=== PATIENT | female | born 1945 | race Caucasian/White ===

== ENCOUNTER 2019-11-16 16:33 | Observation (INO) | payer MEDICARE ==
[~2019-11-16] VITALS: Ht 167.6 cm; Wt 70.0 kg
[2019-11-16] MEDS ORDERED: PRIL40 PO (20:07)
[2019-11-16] MEDS ORDERED: CALCITRIOL PO (20:07)
[2019-11-16] MEDS ORDERED: SINGULAIR 110 MG/TAB PO (20:08)
[2019-11-16] MEDS ORDERED: PRINIVIL10 MG PO (20:08)
[2019-11-16] MEDS ORDERED: LIPITOR20 MG PO (20:08)
[2019-11-16] MEDS ORDERED: FLOVENT 220MCG7.9 GM IH (20:08)
[2019-11-16] MEDS ORDERED: SYNTHROID0.1 MG/TAB PO (20:08)
[2019-11-16 20:19] LABS: HEMATOCRIT 38.8 % (37.0-47.0); HEMOGLOBIN 13.6 g/dl (12.5-16.0); MEAN CELL VOLUME 91 fl (80.0-100.0); MEAN CORPUSCULAR HEMOGLOBIN 32 pg (27.0-31.0); MEAN CORPUSCULAR HGB CONC 35 g/dl (33.0-37.0); PLATELET COUNT 272 K/mm3 (130-400); RED BLOOD COUNT 4.27 M/mm3 (4.10-5.30); REDCELL DISTRIBUTION WIDTH-CV 11.7 % (11.5-14.5)
[2019-11-16 20:27] LABS: ALANINE AMINOTRANSFERASE 52 U/L (4-34); ALBUMIN 4.7 gm/dL (3.5-5.0); ALKALINE PHOSPHATASE 109 U/L (50-136); ANION GAP 11 mmol/L (7-16); AST,SGOT 64 U/L (15-37); BILIRUBIN,TOTAL 0.6 mg/dL (0.0-1.0); BLOOD UREA NITROGEN 13 mg/dL (7-17); CALCIUM 7.9 mg/dL (8.4-10.2); CARBON DIOXIDE 25 mmol/L (22-30); CHLORIDE 100 mmol/L (98-107); CREATININE, serum 0.79 (0.52-1.25); GLUCOSE 124 mg/dL (74-106); POTASSIUM 3.7 mmol/L (3.4-5.0); SODIUM 136 mmol/L (137-145); TOTAL PROTEIN 7.8 gm/dL (6.4-8.2)
[2019-11-16] MEDS ORDERED: CALCIUM 600MG+D1 TAB PO (20:28)
[2019-11-16 20:43] LABS: BAND 4 % (0-10); LYMPHOCYTE 2 % (20.0-51.0); NEUTROPHILS 93 % (42.0-75.2); PLATELET ESTIMATE NORMAL (NORMAL)
--- NOTE | 2019-11-16 21:15 | NUR ---
PT arrived via stretcher from ER accompanied by REY José. PT ambulated to unit bed and changed out of own clothes into hospital gown, no difficulites with mobility. Oriented patient to POC. Will continue to monitor.
[2019-11-16 22:46] VITALS: BP 154/78; PULSE 108; TEMP 98.2
[2019-11-17] VITALS: BP 181/99; PULSE 104; TEMP 98.2
[2019-11-17 02:17] LABS: TROPONIN-I < 0.012 ng/mL (0.000-0.035)
[2019-11-17 04:00] VITALS: BP 150/77; PULSE 95; TEMP 97.8
[2019-11-17 05:20] LABS: BASO % 0.2 % (0.0-2.0); GRAN # 8.5 (1.4-6.5); GRAN % 89.5 % (42.2-75.2); HEMOGLOBIN 12.8 g/dl (12.5-16.0); LYMPH # 0.6 (1.2-3.4); LYMPH % 6.5 % (20.0-51.0); MEAN CELL VOLUME 92 fl (80.0-100.0); MEAN CORPUSCULAR HEMOGLOBIN 32 pg (27.0-31.0); MEAN CORPUSCULAR HGB CONC 35 g/dl (33.0-37.0); MONO # 0.3 (0.1-0.6); MONO % 3.2 % (1.7-9.3); PLATELET COUNT 248 K/mm3 (130-400); REDCELL DISTRIBUTION WIDTH-CV 11.9 % (11.5-14.5)
[2019-11-17 05:25] LABS: HEMATOCRIT 36.8 % (37.0-47.0)
[2019-11-17 05:50] LABS: ALANINE AMINOTRANSFERASE 43 U/L (4-34); ALBUMIN 4.4 gm/dL (3.5-5.0); ALKALINE PHOSPHATASE 81 U/L (50-136); ANION GAP 10 mmol/L (7-16); AST,SGOT 42 U/L (15-37); BILIRUBIN,TOTAL 0.6 mg/dL (0.0-1.0); BLOOD UREA NITROGEN 17 mg/dL (7-17); CALCIUM 7.6 mg/dL (8.4-10.2); CARBON DIOXIDE 24 mmol/L (22-30); CHLORIDE 102 mmol/L (98-107); GLUCOSE 130 mg/dL (74-106); POTASSIUM 3.5 mmol/L (3.4-5.0); SODIUM 135 mmol/L (137-145); TOTAL PROTEIN 7.3 gm/dL (6.4-8.2)
[2019-11-17 05:56] LABS: TROPONIN-I 6 HR POST INITIAL < 0.012 ng/mL (0.000-0.034)
--- NOTE | 2019-11-17 07:04 | NUR ---
Patient report recieved from REY Alvarado. Patient without questions or needs at this time. Care assumed.
[2019-11-17 07:20] VITALS: BP 149/80; PULSE 86; TEMP 98.2
--- NOTE | 2019-11-17 09:25 | NUR ---
Patient discharge education provided with understanding verbalized.
--- NOTE | 2019-11-17 09:30 | NUR ---
Patient escorted to private car. Belongings sent with patient.
== END 2019-11-17 09:30 | disposition home or self-care (01) ==
LOC: COL.ER 16:33 → ICU 19:32
PROVIDERS: Emergency Medicine; Nurse Practitioner Family; ADMIT Family Medicine
DX: L29.9 Pruritus, unspecified (principal); I16.0 Hypertensive urgency; I10 Essential (primary) hypertension; E78.5 Hyperlipidemia, unspecified; J44.9 Chronic obstructive pulmonary disease, unspecified; E03.9 Hypothyroidism, unspecified; Z85.3 Personal history of malignant neoplasm of breast; Z88.0 Allergy status to penicillin; Z88.8 Allergy status to other drugs, medicaments and biological substances
CPT/HCPCS: 99223-AI; 99239; G0378; J0360; J1200; J2060; J2920; J2930; J7030